=== PATIENT | male | born 1980 | race Caucasian/White ===

== ENCOUNTER 2020-02-21 16:29 | Emergency (ER) | payer OTHER, SELFPAY ==
[2020-02-21 16:33] VITALS: BP 126/79; PULSE 86; RESP 20; TEMP 37.4; O2SAT 96
--- NOTE | 2020-02-21 17:59 | ED.EYEPROB ---
HPI - Eye Problem General Chief complaint: Eye Problems Stated complaint: FB r eye Time Seen by Provider: 02/21/20 17:00 Source: patient Mode of arrival: ambulatory Limitations: no limitations History of Present Illness HPI Narrative: Patient presents the emergency department for injury to the right thigh just prior to arrival. Reports he was working under a car. Reports he did have goggles on. Reports it felt like a small piece of metal went into his eye. Reports he thinks he was able to get this out. He washed his eye out at home. Reports some continued discomfort to the eye. Reports some blurry vision. Denies fever, erythema, or vomiting. Related Data Allergies Allergy/AdvReac Type Severity Reaction Status Date / Time cefadroxil Allergy Unknown Unknown Verified 02/21/20 16:36 CEFADROXIL (Generic Allergy) Allergy Y Uncoded 02/21/20 16:36 Review of Systems Review of Systems: Narrative: CONSTITUTIONAL: Denies fever EYES: Reports visual changes. Denies redness, or discharge. All systems reviewed & are unremarkable except as noted in HPI and below PMFSH Social History Social History Smoking status: Never smoker Alcohol intake: current Exam Narrative: Exam Narrative: GENERAL: Well-appearing, well-nourished, and in no acute distress. HEAD: Normocephalic, atraumatic. EYES: PERRLA and EOMI. Eyelid everted, no foreign bodies noted. Positive fluorescein stain uptake in the right eye with a small corneal abrasion EXTREMITIES: Normal range of motion. No edema. SKIN: Warm, dry, no rash. NEURO: No focal deficits. Alert and oriented x3. PSYCH: Normal mood and affect Course Vital Signs Vital signs: Vital Signs Temperature 99.4 F 02/21/20 16:33 Pulse Rate 86 02/21/20 16:33 Respiratory Rate 20 02/21/20 16:33 Blood Pressure 126/79 02/21/20 16:33 Pulse Oximetry 96 02/21/20 16:33 Temperature 99.4 F 02/21/20 16:33 Pulse Rate 86 02/21/20 16:33 Respiratory Rate 20 02/21/20 16:33 Blood Pressure 126/79 02/21/20 16:33 Pulse Oximetry 96 02/21/20 16:33 MDM - Eye Problem MDM Narrative Medical decision making narrative: Patient presents to the emergency department for possible foreign body in the right eye. Reports he washed his eye at home and was able to get it out. No foreign bodies noted on my exam today. He does have a small corneal abrasion. Will be started on antibiotic eye ointment. Was instructed to follow-up with an electric deicer inspector. Patient is stable and felt appropriate for further outpatient evaluation. He was given warnings to return to the ER Critical Care Time Critical Care Time Critical Care Time: No Discharge Plan Discharge Clinical Impression: Corneal abrasion Qualifiers: Encounter type: initial encounter Laterality: right Qualified Code(s): S05.01XA - Injury of conjunctiva and corneal abrasion without foreign body, right eye, initial encounter Patient Disposition: Home, Self-Care Condition: Stable Instructions: Antibiotic Form, Corneal Abrasion (ED) Additional Instructions: Return to the emergency department if you experience fever, redness and swelling of your eye, worsening vision, or any other symptoms that are concerning to you Apply antibiotic eye ointment as prescribed. Tylenol or ibuprofen as needed for discomfort Follow-up with ophthalmology Prescriptions: New erythromycin 5 mg/gram (0.5 %) ointment 1 applic RIGHT EYE Q6H 5 Days Qty: 3.5 RF: 0 Follow-up/Referrals: Geno,BRENDAN Bernal [Primary Care Provider] - Valerio Kincaid MD [Physician] - 1 Day
== END 2020-02-21 18:22 | disposition home or self-care (01) ==
PROVIDERS: Emergency Provider Emergency Medicine; PCP Physician Assistant
DX: S05.01XA Injury of conjunctiva and corneal abrasion without foreign body, right eye, initial encounter (principal); W22.8XXA Striking against or struck by other objects, initial encounter
CPT/HCPCS: 99283; A9270

== ENCOUNTER 2020-03-09 00:34 | Inpatient (IN) | payer OTHER, SELFPAY ==
[2020-03-09] VITALS (36 sets, daily range): BP systolic 88–143; BP diastolic 56–96; PULSE 60–97; RESP 13–22; TEMP 36.1–36.7; O2SAT 95–100; BMI 27.6
--- NOTE | ~2020-03-09 | XR_ITS ---
EXAMINATION: XR chest 2V DATE: 03/09/2020 01:15 INDICATION: Left-sided chest pain TECHNIQUE: PA and lateral views of the chest are obtained. COMPARISON: None available FINDINGS: The lungs are free of acute opacities. There is no pleural effusion or pneumothorax. The he art size is normal. A calcified nodule of the left lower lobe and calcified left hilar lymph nodes ar e consistent with old granulomatous disease. There is mild thoracic spondylosis. IMPRESSION: 1. No acute cardiopulmonary abnormality. Reviewed, dictated and finalized at location A.
--- NOTE | 2020-03-09 00:45 | ECG_ITS ---
Measurements Intervals [place] Rate: 83 P: 47 [place]: 140 QRS: 6 QRSD: 119 T: 39 QT: 347 QTc: 410 Interpretive Statements SINUS RHYTHM INTRAVENTRICULAR CONDUCTION DELAY DELAYED PRECORDIAL R/S TRANSITION MINIMAL Q WAVES- HIGH LATERAL LEADS BORDERLINE ECG Electronically Signed On 03-09-2020 7:14:25 CDT by Jam Hooper D.O.
[2020-03-09] MEDS: ASPIRIN 81 MG CHEWABLE TABLET 324 MG PO (01:01)
[2020-03-09 01:02] LABS: Basophils Percent Auto 0.2 % (0.2-1.2); Eosinophils Absolute Auto 0.1 K/mm3 (0-0.3); Eosinophils Percent Auto 0.9 % (0-4.4); Hematocrit 38.9 % (42.0-52.0); Hemoglobin 13.6 g/dL (14.0-18.0); Immature Granulocyte Absolute 0.03 K/mm3 (0.00-0.031); Immature Granulocyte Percent A 0.3 % (0-0.5); Lymphocytes Absolute Auto 1.18 K/mm3 (0.9-3.2); Mean Corpuscular Hemoglobin 30.6 pg (26-34); Mean Corpuscular Volume 87.6 fl (80-100); Mean Platelet Volume 9.7 fl (7.4-10.4); Monocytes Absolute Auto 0.4 K/mm3 (0.1-0.6); Monocytes Percent Auto 4.6 % (2.6-8.5); Neutrophils Absolute Auto 7.4 K/mm3 (1.3-6.7); Platelet Count Result 167 k/mm3 (150-375); Red Blood Count 4.44 M/mm3 (4.6-6.20); White Blood Count 9.1 K/mm3 (4.5-10.0)
[2020-03-09 01:06] LABS: Prothrombin Time 13.1 Seconds (11.1-14.7)
[2020-03-09 01:07] LABS: Partial Thromboplastin Time 24.6 SECONDS (22.3-36.8)
[2020-03-09 01:14] LABS: Anion Gap 6 mmol/L (8-16); Blood Urea Nitrogen 15 mg/dL (9-20); Calcium 9.2 mg/dL (8.4-10.2); Carbon Dioxide 29 mmol/L (22-30); Chloride 103 mmol/L (98-107); Estimated CRCL calculation 111 ml/min; Estimated Glomerular Filt Rate > 60; Glucose 126 mg/dL (75-110); Potassium 3.9 mmol/L (3.4-5.0); Sodium 138 mmol/L (137-145)
[2020-03-09 01:27] LABS: Troponin I 0.023 ng/mL (0.000-0.034)
--- NOTE | 2020-03-09 02:38 | ED.CHESTPAIN ---
HPI - Chest Pain General Chief Complaint: Chest Pain Stated Complaint: chest pain Time Seen by Provider: 03/09/20 02:03 History of Present Illness HPI narrative: Patient is a 39-year-old male who presents the ER with chest pain. Symptoms began several hours prior to arrival. Patient was unsure when he had sudden onset central chest pressure going from his lower chest all the way up to his neck. Radiated into his left neck and then all the way down his left arm. Symptoms waxed and waned over the course of an hour. No relief with Tums. No worsening of symptoms with physical movements of the extremities or with exertion. He had nausea with vomiting x2. No previous heart history for him or close family member. Not no alleviating factors. Mildly worsened by laying down. Related Data Allergies Allergy/AdvReac Type Severity Reaction Status Date / Time cefadroxil Allergy Unknown Unknown Verified 02/21/20 16:36 CEFADROXIL (Generic Allergy) Allergy Y Uncoded 02/21/20 16:36 Review of Systems Review of Systems: All systems reviewed & are unremarkable except as noted in HPI and below Constitutional: Constitutional: Denies chills, Denies fever(s) and Denies weakness Cardiovascular: Cardiovascular: Reports chest pain, Denies rapid heart rate and Reports radiating jaw, neck or arm pain Respiratory: Respiratory: Denies cough and Reports dyspnea Gastrointestinal: Gastrointestinal: Denies abdominal pain, Denies diarrhea, Reports nausea and Reports vomiting PMFSH Past Medical History Medical History (Updated 03/09/20 @ 05:11 by Lucian Lee MD) Healthy adult male Surgical History Surgical History (Updated 03/09/20 @ 05:09 by Lucian Lee MD) No history of previous surgery Social History Social History Smoking status: Never smoker Alcohol intake: current Gender identity (if verbalized by the patient): Male Exam Narrative: Exam Narrative: GENERAL: Well-appearing, well-nourished, and in no acute distress. HEAD: Normocephalic, atraumatic. ENT: Mucous membranes moist. CHEST: Clear to auscultation. No respiratory distress. Reproducible tenderness left anterior chest wall. HEART: Regular rate and rhythm. No murmur heard. Normal peripheral pulses. ABDOMEN: Soft, nontender, nondistended. EXTREMITIES: Normal range of motion. No edema. SKIN: Warm, dry, no rash. NEURO: Alert and oriented x3. PSYCH: Normal mood and affect. Course Course Emergency Course: Patient chest pain-free. Discussed with Dr. Wong decision was made to admit to chest pain center. While in the ER patient second troponin came back positive. Discussed again with Dr. Wong. Admit to the IMCU and placed on heparin drip. Keep n.p.o. Patient aware of diagnosis and treatment plan. Vital Signs Vital signs: Vital Signs Pulse Rate 83 03/09/20 00:39 Respiratory Rate 17 03/09/20 00:39 Blood Pressure 128/96 H 03/09/20 00:39 Pulse Oximetry 99 03/09/20 00:39 Pulse Rate 91 03/09/20 00:44 Respiratory Rate 17 03/09/20 00:39 Blood Pressure 128/96 H 03/09/20 00:39 Pulse Oximetry 99 03/09/20 00:39 MDM - Chest Pain Lab Data Result diagrams: 03/09/20 00:50 03/09/20 00:50 Labs: Lab Results 03/09/20 03/09/20 03/09/20 Range/Units 00:50 00:50 00:50 WBC 9.1 (4.5-10.0) K/mm3 RBC 4.44 L (4.6-6.20) M/mm3 Hgb 13.6 L (14.0-18.0) g/dL Hct 38.9 L (42.0-52.0) % MCV 87.6 (80-100) fl MCH 30.6 (26-34) pg MCHC 35.0 (32-36) g/dl RDW 12.0 (11.5-14.5) % Plt Count 167 (150-375) k/mm3 MPV 9.7 (7.4-10.4) fl Immature Gran % (Auto) 0.3 (0-0.5) % Neut % (Auto) 81.0 H (45.5-73.1) % Lymph % (Auto) 13.0 L (18.3-44.2) % [place] % (Auto) 4.6 (2.6-8.5) % Eos % (Auto) 0.9 (0-4.4) % Baso % (Auto) 0.2 (0.2-1.2) % Lymph # (Auto) 1.18 (0.9-3.2) K/mm3 [place] # (Auto) 0.4 (0.1-0.6) K/mm3 Eos # (Auto) 0.1 (0-0.3) K/mm3 Ba
[2020-03-09 04:28] LABS: Troponin I 0.245 ng/mL (0.000-0.034)
[2020-03-09] MEDS: HEPARIN SODIUM 5,000 UNITS/ML VIAL 4000 UNITS IV PUSH (05:14)
[2020-03-09] MEDS: HEPARIN SOD/D5W 100 UNITS/ML 25,000 UNITS/250 ML BAG 10 UNITS IV CONT (05:15)
--- NOTE | 2020-03-09 06:04 | ADMGEN ---
This patient, Leon Goff, was admitted to IMU Room 232-01. Patient/family oriented to hospital policies and general routines including ID bracelet, bed and alarms, visiting hours, pain management, procedures, bathroom and other care routines, personal items, smoking policy, room service/diet, and visiting hours. Valuables list has been completed. Information on how to activate the Rapid Response Team has been discussed. Patient/Family are encouraged to report perceived risks to care and to ask questions if they do not understand what they are told or what they should do.
[2020-03-09 07:47] LABS: Troponin I 0.529 ng/mL (0.000-0.034)
--- NOTE | 2020-03-09 08:57 | PM.CNCAR ---
Assessment and Plan Additional Plan 39-year-old white male previously healthy presents with an episode of chest discomfort as detailed above and a troponin rise therefore has the diagnosis of acute coronary syndrome/ non ST elevation [place]. Coronary angiography was recommended for this morning to guide therapeutic decisions he understands the procedure in detail the risks and wishes to proceed. We will proceed with angiography this morning and further recommendations pending completion of that exam Madi Cesar MD [facility] History of Present Illness History of Present Illness Consult date/time: Date of service:03/09/20 08:57 Consult reason: chest pain Reason For Visit: Chest pain Narrative: This is a 39-year-old man that I am seeing at the request of the hospitalist with a history of chest pain and troponin abnormality compatible with acute coronary syndrome. The patient is not known to have any cardiac and really not any medical problems of any kind prior to this admission. He was in his usual state of health when yesterday evening he was at his home and after taking a shower prior to getting ready to go to bed he started to notice some chest pain he describes an upper substernal pressure-like sensation that radiated to the left shoulder and down the left arm. He stated this symptoms waxed and waned for about an hour so he took some aspirin and he also decided to take some antacids to see if he would obtain relief and when he did not he eventually came to the emergency room to be evaluated. In the ED is electrocardiogram showed a sinus mechanism without any significant ST or T abnormalities. His initial troponin level was negative and the blood initial plans were to admit him as a chest Pain Center admission. When his 2nd troponin level came back abnormal he was converted to a standard admission he was placed on intravenous heparin and admitted to the IMU. He has not had any further episodes of pain since admission. He also received aspirin in the emergency room he has not received a beta-cesilia or a statin from what I can see. 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 The patient offers no other history at this time and seems to be doing well. He states his father has coronary artery disease he believes he developed it at around 60 years old but he is unsure of that Review of Systems Constitutional: Constitutional: Reports no additional constitutional complaints Eyes: Eyes: Reports no additional eye complaints ENT: Reports system reviewed and no additional complaints, except as documented Cardiovascular: Cardiovascular: Reports as per HPI Respiratory: Respiratory: Reports no additional respiratory complaints Gastrointestinal: Gastrointestinal: Reports no additional gastrointestinal complaints Genitourinary: Genitourinary: Reports no additional male genitourinary complaints Musculoskeletal: Musculoskeletal: Reports no additional musculoskeletal complaints Integumentary/Breasts: Skin/Breast: Reports system reviewed and no additional complaints, except as docu Neurologic: Reports system reviewed and no additional complaints, except as documented Endocrine: Endocrine: Reports no additional endocrine complaints Hematologic/Lymphatic: Hematologic/Lymphatic: Reports no additional hematologic/lymphatic complaints Allergic/Immunologic: Allergic/Immunologic: Reports no additional allergic/immunologic complaints [facility] Past Medical History Medical History (Updated 03/09/20 @ 05:11 by Lucian Lee MD) Healthy adult male Surgical History Surgical History (Updated 03/09/20 @ 05:09 by Lucian Lee MD) No history of previous surgery Family History Family History (Updated 03/09/20 @ 06:24 by Flakita Richards RN) [place]
--- NOTE | 2020-03-09 09:02 | WPDMODSED ---
Moderate Sedation Note-Pt Data Patient Data Diagnosis: non ST-elevation IN Present Complaint: upper substernal chest heaviness Allergies Allergy/AdvReac Type Severity Reaction Status Date / Time cefadroxil Allergy Unknown Unknown Verified 02/21/20 16:36 CEFADROXIL (Generic Allergy) Allergy Y Uncoded 02/21/20 16:36 Home Medications Medication Instructions Recorded Confirmed Type No Home Medications 03/09/20 03/09/20 History Current Medications: Active Medications Acetaminophen (Tylenol Tablet) 650 mg PO Q4H PRN PRN Reason: Mild Pain (1-3) Aspirin (Aspirin Chewable) 81 mg PO DAILY@0800 [facility] Heparin Sodium (Porcine) (Heparin Sodium) 4,000 units IV PUSH PRN PRN PRN Reason: aPTT less than 55 seconds Heparin Sodium (Porcine) (Heparin Sodium) 3,000 units IV PUSH PRN PRN PRN Reason: aPTT 55 - 70 seconds Heparin Sodium/Dextrose (Heparin Sodium/D5w 100 Units/Ml) 25,000 units in 250 mls @ 10 mls/hr IV CONT .Q24H TAMELA; Protocol Last Admin: 03/09/20 05:15 Dose: 1,000 units/hr, 10 mls/hr Documented by: Nitroglycerin (Nitrostat Subl 0.4 Mg (1/150)) 0.4 mg SUBLINGUAL Q5MIN PRN PRN Reason: Chest Pain Ondansetron HCl (Zofran Inj) 4 mg IV PUSH Q6H PRN PRN Reason: Nausea And Vomiting Sedation/Anesthesia: No previous sedation/anesthesia problems (including family history). [facility] Past Medical History Medical History (Updated 03/09/20 @ 05:11 by Lucian Lee MD) Healthy adult male Surgical History Surgical History (Updated 03/09/20 @ 05:09 by Lucian Lee MD) No history of previous surgery Family History Family History (Updated 03/09/20 @ 06:24 by Flakita Richards RN) Sibling Hypertension Mother Patient's mother is in good health Father Malignant neoplasm of prostate Myasthenia gravis Tongue cancer Social History Social History Smoking status: Former smoker Tobacco type: cigarettes Alcohol intake: current Drinks per week: 5 Substance use: never Substance use type: does not use Gender identity (if verbalized by the patient): Male Spiritual care concerns: No Mod Sed Physical Exam Physical Exam Pre Procedural Exam: Normal: Appearance, Neck, Throat, Airway, Lungs, Heart Size, Heart Rate, Heart Rhythm, Neuro Exam and Extremities Hours since solid foods: 12 Hours since liquid intake: 12 Internal Medicine - PN: Obj Da Vital Signs Vital Signs: Vital Signs - 24 hr 03/09/20 00:39 03/09/20 00:44 03/09/20 01:15 Temperature Pulse Rate 83 91 83 Respiratory Rate 17 19 Blood Pressure 128/96 H 136/96 H Pulse Oximetry 99 97 03/09/20 02:15 03/09/20 03:17 03/09/20 04:15 Temperature Pulse Rate 97 79 81 Respiratory Rate 17 14 18 Blood Pressure 132/95 H 131/86 128/94 H Pulse Oximetry 98 96 95 03/09/20 04:45 03/09/20 05:15 03/09/20 06:08 Temperature 36.5 C Pulse Rate 95 82 70 Respiratory Rate 19 22 H 18 Blood Pressure 133/93 H 119/83 140/82 Pulse Oximetry 95 96 99 03/09/20 08:00 Temperature 36.1 C L Pulse Rate 83 Respiratory Rate 14 Blood Pressure 128/82 Pulse Oximetry 100 Meds/Results Medications: Active Medications Generic Name Dose Route Start Last Admin Trade Name Freq PRN Reason Stop Dose Admin Acetaminophen 650 mg 03/09/20 02:59 Tylenol Tablet PO Q4H PRN Mild Pain (1-3) Aspirin 81 mg 03/09/20 08:00 Aspirin Chewable PO DAILY@0800 [facility] Heparin Sodium (Porcine) 4,000 units 03/09/20 06:02 Heparin Sodium IV PUSH PRN PRN aPTT less than 55 seconds Heparin Sodium (Porcine) 3,000 units 03/09/20 06:02 Heparin Sodium IV PUSH PRN PRN aPTT 55 - 70 seconds Heparin Sodium/Dextrose 25,000 units in 250 mls @ 10 mls/hr 03/09/20 04:45 03/09/20 05:15 Heparin Sodium/D5w 100 Units/Ml IV CONT 1,000 units/hr .Q24H TAMELA 10 mls/hr Administration Protocol 1,000 UNITS/HR Nitroglycerin 0.4 mg 03/09/20 02:59 Nitrostat Subl 0.4 Mg (1/150) SUBLINGUAL
[2020-03-09] MEDS: ASPIRIN 81 MG CHEWABLE TABLET PO (09:28)
--- NOTE | 2020-03-09 11:13 | ECG_ITS ---
Measurements Intervals [place] Rate: 84 P: 144 [place]: 135 QRS: -23 QRSD: 125 T: 180 QT: 333 QTc: 395 Interpretive Statements SINUS RHYTHM INTRAVENTRICULAR CONDUCTION DELAY HIGH LATERAL INFARCT, AGE INDETERMINATE BORDERLINE T WAVE ABNORMALITY- INFERIOR LEADS ABNORMAL ECG Electronically Signed On 03-09-2020 11:39:30 CDT by Jam Hooper D.O.
--- NOTE | 2020-03-09 11:38 | ECG_ITS ---
Measurements Intervals [place] Rate: 64 P: 25 [place]: 130 QRS: 22 QRSD: 111 T: 34 QT: 386 QTc: 401 Interpretive Statements SINUS RHYTHM RSR' IN V1 OR V2, CONSIDER RIGHT VENTRICULAR HYPERTROPHY OR RIGHT VCD MINIMAL Q WAVES- LAT/HIGH LAT LEADS BORDERLINE ECG Electronically Signed On 03-09-2020 14:31:53 CDT by Jam Hooper D.O.
--- NOTE | 2020-03-09 11:43 | WPDCARDPROC ---
Cardiac Cath Procedure Note Date of procedure:: 03/09/20 Performing physician:: Madi Cesar MD Indication:: acute coronary syndrome Brief clinical history:: 39-year-old man without previous cardiovascular history or significant medical history the patient began to experience ischemic type chest pain last evening after showering. Upon arrival in the emergency room he was stable his electrocardiogram appeared to be benign however his troponin levels have risen compatible with ACS. In this setting angiography has been recommended Procedure Procedure performed:: left heart catheterization with coronary angiography and left ventriculography PCI to right coronary artery using drug-eluting stent Sedation/Medication given:: fentanyl 50 mg Versed 2 mg case start time 11:06 a.m. case end time 11:37 a.m. sedation provided by Bin Sol RN, trained observer Access site:: right femoral artery Estimated blood loss:: 15-20 cc Procedure note:: patient brought to the cardiac catheterization lab in the postabsorptive state the right femoral triangle was prepared in the usual fashion. Anesthesia was provided with 1% lidocaine infiltrated locally. Using the modified Seldinger technique a 5 Somali sheath was placed into the right femoral artery. Left heart catheterization was then performed. I used a 5 Somali angled pigtail catheter to document left-sided hemodynamics, pullback pressures across the aortic valve into inject all LV g in the are AO projection. Following this the pigtail catheter was withdrawn and the left coronary artery was then engaged and injected using a 5 Somali FL4 catheter. The right coronary was engaged and injected using a 5 Somali JR4 catheter. The cine angiograms were then reviewed and PCI of the right coronary artery was recommended and carried out as detailed below. Prior to PCI the 5 Somali sheath was changed over a guidewire for a 6 Somali sheath. The patient was systemically anticoagulated with Angiomax for this intervention and he received Brilinta 180 mg p.o. in the cavity a photographic laboratory technician. Following this PCI of the right coronary artery was carried out as detailed below. After PCI the case was terminated the sheath was sutured into position the patient was taken to the holding area for post cath/PCI recovery. Plans will be made for manual sheath removal in 2 hours following completion of the Angiomax infusion. Findings:: Hemodynamics: Central aortic pressure is 1 30/76 left ventricle 128/0 end-diastolic pressure of 10 there is gradient pullback across the aortic valve. left ventricle: The LV is normal in size the mid inferior wall is hypodynamic the remainder of the LV contracts well global ejection fraction is 55% by visual estimation the left main coronary artery is widely patent the LAD is a moderate caliber artery extending down to around the apex the LAD its diagonal and septal branches are angiographically normal. There is a medium size ramus intermedius branch that takes its origin and distributes is a high OM branch. This vessel is angiographically normal circumflex is a large caliber vessel that appears to be codominant to the posterior circulation the circumflex its marginal with posterior branches are angiographically free of disease right coronary is a large caliber vessel also appears to be codominant to the inferior wall the mid right coronary artery has a high-grade stenosis of 95-99%. This is preceded by a longer area of atherosclerosis which is quite mild. Intervention: The RCA was engaged using a 6 Somali JR4 guiding catheter. The right coronary artery was wired using a 0.014 BMW. Lesion was pre-dilated using a 3 x 20 mm emerge PTCA balloon. Following this there was much better flow in the vessel and it was much larger than anticipated. The entire area of disease, not just high-grade segment but the entire area of atherosclerosis was then treated with a 4 by 30 mm Orsiro drug-elut
--- NOTE | 2020-03-09 14:42 | SUR.PHASEII ---
1435-Patient hypotensive and nauseous during sheath pull. Manual pressure continues to be held by Bin Sol RN. IVF , wide open, cool wash cloths applied to patients face and neck. 1440 Pt back to BP baseline, pt states hes feeling better, BP 126/84, r groin manual pressure continues, no bleeding or hematoma noted to R groin, will continue to monitor closely.
[2020-03-09] MEDS: ACETAMINOPHEN 325 MG TABLET 650 MG PO (21:32)
[2020-03-09] MEDS: TICAGRELOR 90 MG TABLET PO (21:32)
[2020-03-10] VITALS (9 sets, daily range): BP systolic 123–130; BP diastolic 75–80; PULSE 69–86; RESP 16–20; TEMP 35.6–36.1; O2SAT 97–98
--- NOTE | 2020-03-10 05:11 | ECG_ITS ---
Measurements Intervals [place] Rate: 74 P: 50 [place]: 145 QRS: 6 QRSD: 115 T: 11 QT: 371 QTc: 414 Interpretive Statements SINUS RHYTHM INTRAVENTRICULAR CONDUCTION DELAY MINIMAL Q WAVES- HIGH LATERAL LEADS BORDERLINE ECG Electronically Signed On 03-10-2020 10:00:14 CDT by Jam Hooper D.O.
[2020-03-10 05:27] LABS: Basophils Percent Auto 0.4 % (0.2-1.2); Eosinophils Absolute Auto 0.1 K/mm3 (0-0.3); Eosinophils Percent Auto 1.3 % (0-4.4); Hematocrit 41.2 % (42.0-52.0); Hemoglobin 13.9 g/dL (14.0-18.0); Immature Granulocyte Absolute 0.02 K/mm3 (0.00-0.031); Immature Granulocyte Percent A 0.3 % (0-0.5); Lymphocytes Absolute Auto 1.47 K/mm3 (0.9-3.2); Lymphocytes Percent Auto 20.8 % (18.3-44.2); Mean Corpuscular HGB Conc 33.7 g/dl (32-36); Mean Corpuscular Hemoglobin 30.3 pg (26-34); Mean Corpuscular Volume 89.8 fl (80-100); Mean Platelet Volume 10.2 fl (7.4-10.4); Monocytes Absolute Auto 0.5 K/mm3 (0.1-0.6); Monocytes Percent Auto 7.4 % (2.6-8.5); Neutrophils Absolute Auto 4.9 K/mm3 (1.3-6.7); Neutrophils Percent Auto 69.8 % (45.5-73.1); Platelet Count Result 169 k/mm3 (150-375); Red Blood Count 4.59 M/mm3 (4.6-6.20); Red Cell Distribution Width 12.2 % (11.5-14.5); White Blood Count 7.1 K/mm3 (4.5-10.0)
[2020-03-10 05:37] LABS: Cholesterol 241 mg/dL (0-200); HDL Direct 35 mg/dL; Triglycerides 175 mg/dL (<150)
[2020-03-10 05:48] LABS: LDL Cholesterol Direct 155 mg/dL
[2020-03-10] MEDS: ROSUVASTATIN 10 MG TABLET PO (09:14)
[2020-03-10] MEDS: ASPIRIN 81 MG CHEWABLE TABLET PO (09:14)
[2020-03-10] MEDS: TICAGRELOR 90 MG TABLET PO (09:14)
--- NOTE | 2020-03-10 11:47 | PM.DS ---
DS: Admitting Diagnosis Admitting Diagnosis Admitting Diagnosis: Chest pain DS: Discharge Diagnosis Discharge Diagnosis (1) Non-ST elevated myocardial infarction (non-STEMI): Code(s): I21.4 - Non-ST elevation (NSTEMI) myocardial infarction Status: Acute Assessment and Plan: Status post drug-eluting stent to mid RCA 03/09/2020. Continue aspirin 81 mg daily indefinitely, Brilinta 90 mg every 12 hours for at least 1 year and rosuvastatin 10 mg daily. DS: Summary Hospital Course Reason for hospitalization: Chest pain Hospital Course: 39-year-old male with no history of coronary artery disease presented to the emergency room for evaluation of chest pain. EKG was benign but his biomarkers began to rise. He was taken to the cardiac catheterization lab by Dr Cesar on 03/09/2020 with significant findings of: Single-vessel coronary disease with a 95-99% stenosis of the mid right coronary artery which is a codominant vessel. No significant left coronary disease. Mild inferior hypokinesis overall normal ejection fraction. He proceeded on to successful PCI using 4 x 30 mm Orsiro drug-eluting stent. He was started on aspirin , Brilinta and rosuvastatin. He was monitored overnight. He had no arrhythmias. Right groin site was without swelling or bleeding. No femoral bruit. Distal pulses intact. He was discharged home in stable and pain-free condition. Status at Discharge Functional status at discharge: independent ambulation Overall status at discharge: patient is back to baseline Time Spent with Patient Time attestation: Total time spent providing and/or coordinating discharge services: 20 minutes in the room answering questions reviewing activity restrictions, diet and medications. 10 minutes to do discharge orders. 15 minutes to complete discharge summary. Total time: 45 minutes Time spent: Greater than 30 minutes Exam Const: General: comfortable and no acute distress Other: HENMT: Mouth: Yes moist mucous membranes Eyes: Sclera: sclerae normal Pupils: Equal, round and reactive pupils present Neck: Neck: supple and no JVD Resp: Effort & Inspection: normal respiratory effort Auscultation: clear to auscultation bilaterally Cardio: Other: GI: GI Palp: Yes Soft to palpation Auscultation: normal bowel sounds Skin: General skin exam: normal color Neuro: Cranial nerves: Yes Equal, round and reactive pupils present Cognition (Neuro): normal cognition Extrem: General: normal to inspection Other: right groin site without swelling or bleeding. No femoral bruit. Distal pulses intact. Psych: Appearance: grossly normal Mental Status: mental status grossly normal Speech and movement: Normal speech and movement present Affect: normal affect Attitude: cooperative Thought process: Normal thought process present Thought content: Yes Normal thought content present Insight: Good insight present (Psych) Judgement: Good judgement present (Psych) DS: Data Data Completed and Pending Labs on day of discharge: Labs from last 24 hours 03/10/20 03/10/20 05:07 05:07 WBC 7.1 RBC 4.59 L Hgb 13.9 L Hct 41.2 L MCV 89.8 MCH 30.3 MCHC 33.7 RDW 12.2 Plt Count 169 MPV 10.2 Immature Gran % (Auto) 0.3 Neut % (Auto) 69.8 Lymph % (Auto) 20.8 [place] % (Auto) 7.4 Eos % (Auto) 1.3 Baso % (Auto) 0.4 Lymph # (Auto) 1.47 [place] # (Auto) 0.5 Eos # (Auto) 0.1 Baso # (Auto) 0.0 Abs Immat Gran (auto) 0.02 Absolute Neuts (auto) 4.9 Absolute Nucleated RBC 0.0 Nucleated RBC % 0.0 Triglycerides 175 H Cholesterol 241 H LDL Cholesterol Direct 155 HDL Direct 35 Discharge Plan Discharge Attending physician on discharge: Manish Wong Discharging Clinician: Martha Del Angel Anticipated Discharge Date/Time: 03/10/20 11:36 Patient Disposition: Home, Self-Care Activity: other - see
== END 2020-03-10 13:05 | disposition home or self-care (01) | DRG 247 ==
LOC: ANHED 05:11 → ANHIMU 05:22
PROVIDERS: Specialist; Admitting Provider Internal Medicine Cardiovascular Disease; Emergency Provider Emergency Medicine; PCP Physician Assistant; Visit Provider Nurse Practitioner Adult Health
PROC: 4A023N7 Measurement of Cardiac Sampling and Pressure, Left Heart, Percutaneous Approach (ICD-10-PCS; CPT 93452; principal; 2020-03-09 11:30)
PROC: 027034Z Dilation of Coronary Artery, One Artery with Drug-eluting Intraluminal Device, Percutaneous Approach (ICD-10-PCS; 2020-03-09 11:30)
DX: I21.4 Non-ST elevation (NSTEMI) myocardial infarction (principal); I25.10 Atherosclerotic heart disease of native coronary artery without angina pectoris; Z79.82 Long term (current) use of aspirin; Z79.899 Other long term (current) drug therapy; Z87.891 Personal history of nicotine dependence
CPT/HCPCS: 36415; 71046; 80048; 80061; 84484; 85025; 85610; 85730; 93005; 93458; 96374; 99291; A9270; C1725; C1769; C1874; C1887; C1894; C9600; G0378; J0461; J0583; J1644; J2250; J3010; J7040

== ENCOUNTER 2020-11-03 22:37 | Emergency (ER) | payer OTHER, SELFPAY ==
--- NOTE | ~2020-11-03 | CT_ITS ---
EXAMINATION: CT brain wo con DATE: 11/03/2020 23:15 INDICATION: Head injury on blood thinners. TECHNIQUE: Computed tomography (CT) of the head was performed without intravenous contrast. Sagittal and coronal reconstructions were performed. The mA was adjusted according to patient size. Iterative reconstruction technique was employed. The dose-length product was 681.00 mGy-cm. COMPARISON: None FINDINGS: No calvarial fracture. No acute intracranial hemorrhage, acute infarction or abnormal extra axial flu id collection. Ventricles are normal and symmetric. No mass/mass effect. Small amount of layering rel atively high attenuation fluid in the right maxillary sinus which could represent blood. Correlate fo r epistaxis. The orbits and mastoid air cells are normal. IMPRESSION: 1. Normal brain. No acute intracranial process. Reviewed, dictated and finalized at location A.
[2020-11-03 22:49] VITALS: BP 131/89; PULSE 89; RESP 18; TEMP 35.9; O2SAT 97
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
[2020-11-04 00:10] VITALS: BP 129/78; PULSE 79; RESP 18; O2SAT 98
== END 2020-11-04 00:10 | disposition home or self-care (01) ==
LOC: ANHED 11-04 00:06
PROVIDERS: Emergency Provider Emergency Medicine; PCP Physician Assistant
DX: S09.90XA Unspecified injury of head, initial encounter (principal); W27.8XXA Contact with other nonpowered hand tool, initial encounter; Z87.891 Personal history of nicotine dependence
CPT/HCPCS: 70450; 99284

== ENCOUNTER 2021-07-03 12:08 | Emergency (ER) | payer OTHER, SELFPAY ==
[2021-07-03 12:27] VITALS: BP 139/94; PULSE 99; RESP 20; TEMP 37.4; O2SAT 98
== END 2021-07-04 00:18 | disposition left against medical advice (07) ==
LOC: ANHED 13:17
PROVIDERS: PCP Physician Assistant
DX: Z53.21 Procedure and treatment not carried out due to patient leaving prior to being seen by health care provider (principal)
CPT/HCPCS: 99199

== ENCOUNTER → 2021-07-04 18:25 | Outpatient (CLI) | payer OTHER, SELFPAY ==
--- NOTE | ~2021-07-04 | XR_ITS ---
EXAMINATION: XR chest 2V DATE: 07/04/2021 18:43 INDICATION: Acute bronchitis with bronchospasm TECHNIQUE: PA and lateral views of the chest are obtained. COMPARISON: 03/09/2020 FINDINGS: There are patchy opacities of the mid and lower lung zones. There is no pleural effusion or pneumothorax. The cardiomediastinal silhouette is normal. The visualized bones and soft tissues are unremarkable. IMPRESSION: 1. Patchy opacities of the mid and lower lung zones, likely pneumonia. Reviewed, dictated and finalized at location F. ADMINISTRATOR
== END ==
PROVIDERS: PCP Physician Assistant; Visit Provider Physician Assistant
DX: J20.8 Acute bronchitis due to other specified organisms (principal)
CPT/HCPCS: 71046

== ENCOUNTER 2021-07-05 08:14 | Emergency (ER) | payer OTHER, SELFPAY ==
[2021-07-05 08:50] VITALS: BP 120/83; PULSE 87; RESP 18; TEMP 36.4; O2SAT 97
[2021-07-05 08:52] VITALS: O2SAT 97
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
[2021-07-05 09:17] LABS: Hematocrit 40.8 % (40.0-54.0); Hemoglobin 13.3 g/dL (14.0-18.0); Mean Corpuscular HGB Conc 32.6 g/dL (32.0-36.0); Mean Corpuscular Hemoglobin 29.4 pg (27.0-31.0); Mean Corpuscular Volume 90.3 fL (78.0-102.0); Platelet Count Result 334 K/mm3 (150-420); Red Blood Count 4.52 M/mm3 (4.70-6.10); Red Cell Distribution Width 12.4 % (11.6-14.4); White Blood Count 6.2 K/mm3 (4.8-10.8)
[2021-07-05 09:33] LABS: D Dimer 0.45 mg/L (0.19-0.50)
[2021-07-05 09:36] LABS: Lactic Acid Reflex 0.8 mmol/L (0.4-2.0)
[2021-07-05 09:39] LABS: Atypical Lymphocytes Present; Band Neutrophils Percent 0 % (0-6); Basophils Percent Manual 0 % (0-1); Eosinophils Absolute Manual 0.12 K/mm3 (0.02-0.5); Eosinophils Percent Manual 2 % (1-6); Lymphocytes Absolute Manual 0.86 K/mm3 (1.1-4.5); Lymphocytes Percent Manual 14 % (18-44); Monocytes Absolute Manual 0.49 K/mm3 (0.1-0.90); Monocytes Percent Manual 8 % (3-9); Neutrophils Absolute Manual 4.71 K/mm3 (1.3-6.7); Neutrophils Percent Manual 76 % (46-73); Platelet Estimate Adequate (Adequate); Total Cells Counted 100
[2021-07-05 09:46] LABS: CRP 10.2 mg/dL (0.0-0.9)
[2021-07-05 10:10] LABS: Alanine Aminotransferase 65 U/L (16-63); Albumin Level 3.3 g/dL (3.4-5.0); Alkaline Phosphatase 53 U/L (46-116); Anion Gap 10 mmol/L (8-16); Aspartate Amino Transferase 50 U/L (15-37); Bilirubin,Total 0.4 mg/dL (0.00-1.00); Blood Urea Nitrogen 9 mg/dL (7-18); Calcium 8.5 mg/dL (8.5-10.1); Carbon Dioxide 29 mmol/L (21-32); Chloride 102 mmol/L (98-108); Estimated CRCL calculation 90 ml/min; Estimated Glomerular Filt Rate > 60; Ferritin > 1000 ng/mL (26-388); Glucose 101 mg/dL (70-99); Magnesium 2.2 mg/dL (1.8-2.4); Osmolality Calculated 290 mOsm/kg (285-295); Potassium 3.9 mmol/L (3.5-5.1); Sodium 141 mmol/L (136-145); Total Protein 8.1 g/dL (6.4-8.2)
[2021-07-05 11:00] VITALS: BP 121/84; PULSE 94; RESP 18; O2SAT 95
== END 2021-07-05 11:01 | disposition home or self-care (01) ==
PROVIDERS: Emergency Provider Emergency Medicine; PCP Physician Assistant
DX: U07.1 COVID-19 (principal); J12.82 Pneumonia due to coronavirus disease 2019; I25.10 Atherosclerotic heart disease of native coronary artery without angina pectoris; Z87.891 Personal history of nicotine dependence
CPT/HCPCS: 36415; 80053; 82728; 83605; 83735; 85025; 85380; 86140; 96372; 99283; J1100

== ENCOUNTER 2021-10-27 07:28 | Outpatient (CLI) | payer OTHER, SELFPAY ==
--- NOTE | 2021-10-30 13:27 | WPDHOMESLEEP ---
Sleep Study - Home Unattended Date of Study: 10/27/21 Ordering Provider: Manish Wong MD Interpreting Provider: Jina Sullivan, DO Home Sleep Study Type: Apnea Link Air Height: 1.78 m Weight: 95.254 kg Body Mass Index: 30.1 Neck Circumference (inches): 15.5 [place]: 13 Reason for Sleep Study Unrefreshing sleep Sleep History The patient is a 41-year-old male when he was coronary artery disease, seasonal allergies, hyperlipidemia and history of myocardial infarction and stent in RCA that had a sleep study ordered by his [employer] dealer for evaluation of sleep apnea. The patient denies awakening from sleep short of breath. He denies awakening at night with heartburn, belching or cough. He constantly snores loud enough that others complain. He frequently has trouble sleeping when he has a cold. He denies waking up gasping for air throughout the night. He frequently has breathing problems at night observed by himself or others. He occasionally sweats excessively at night. He denies heart palpitations or irregular heartbeats during the night. He constantly falls asleep during the day but never while driving. He rarely has trouble at school or work due to sleepiness. He denies sleep paralysis, cataplexy and hypnagogic / hypnopompic hallucinations. He denies having nightmares. He denies having thoughts racing through his mind. He denies feeling sad, depressed or anxious. He denies noticing parts of his body jerk. He denies kicking during the night. He denies having crawling and aching feelings in his legs as well as leg pain during the night. He rarely grinds his teeth during sleep and rarely awakens with morning jaw pain. He is occasionally bothered by pain during the day but never awakened by pain during the night. He occasionally wakes up feeling stiff in the morning. He occasionally wakes up with sore achy muscles. He occasionally wakes up with pain in the neck, spine and other joints. He goes to bed between 9 and 10 p.m. on the weekdays and between 10 and 11:00 p.m. on the weekends. He can fall asleep immediately. He wakes up a few times throughout the night between midnight and 3:00 a.m. to urinate. He is able to fall back to sleep immediately. He wakes up at 4:45 a.m. on weekdays and between 7 and 8:00 a.m. on the weekends. He typically gets between 7 and 8 hours of sleep per night. He does not stay in bed after waking up in morning. He currently lives with his kids and his girlfriend. He does not consume any caffeinated beverages within 2 hours of bedtime. He does not engage in physical exercise before bedtime. He will watch television before falling asleep. He will take naps in the afternoon or the evening but they are not refreshing. He will drink 4 cups of caffeinated beverage in the morning. He will occasionally drink up to a 6 pack of alcohol per day. He denies tobacco use. [facility] Past Medical History Medical History Coronary artery disease Non-ST elevated myocardial infarction (non-STEMI) Surgical History Surgical History No history of previous surgery S/P right coronary artery (RCA) stent placement Stented coronary artery Family History Family History Sibling Hypertension Mother Patient's mother is in good health Father Malignant neoplasm of prostate Myasthenia gravis Tongue cancer Social History Social History Smoking status: Former smoker Tobacco type: cigarettes Alcohol intake: current Drinks per week: 5 Substance use: never Substance use type: does not use Gender identity (if verbalized by the patient): Male Spiritual care concerns: No Medications Home Medications Medication Instructions Recorded Confirmed Type aspirin [Adult A
[2021-10-30 13:45] VITALS: BMI 30.1
== END 2021-10-30 10:27 | disposition home or self-care (01) ==
LOC: ANHCSM 07:31
PROVIDERS: PCP Physician Assistant; Visit Provider Internal Medicine Cardiovascular Disease
DX: G47.33 Obstructive sleep apnea (adult) (pediatric) (principal)
CPT/HCPCS: 95806

== ENCOUNTER 2023-05-27 02:12 | Day surgery (SDC) | payer BC, SELFPAY ==
[2023-05-27] VITALS (8 sets, daily range): BP systolic 115–129; BP diastolic 72–93; PULSE 61–79; RESP 12–20; TEMP 36.6; O2SAT 96–100; BMI 31.7
[2023-05-27 10:58] LABS: Basophils Percent Auto 0.2 % (0.2-1.2); Eosinophils Absolute Auto 0.1 K/mm3 (0-0.3); Eosinophils Percent Auto 2.2 % (0-4.4); Hematocrit 39.5 % (42.0-52.0); Hemoglobin 13.3 g/dL (14.0-18.0); Immature Granulocyte Absolute 0.01 K/mm3 (0.00-0.031); Immature Granulocyte Percent A 0.2 % (0-0.5); Lymphocytes Absolute Auto 1.39 K/mm3 (0.9-3.2); Mean Corpuscular HGB Conc 33.7 g/dl (32-36); Mean Corpuscular Hemoglobin 29.8 pg (26-34); Mean Corpuscular Volume 88.4 fl (80-100); Mean Platelet Volume 9.7 fl (7.4-10.4); Monocytes Absolute Auto 0.3 K/mm3 (0.1-0.6); Neutrophils Absolute Auto 2.7 K/mm3 (1.3-6.7); Neutrophils Percent Auto 60.4 % (45.5-73.1); Platelet Count Result 164 k/mm3 (150-375); Red Blood Count 4.47 M/mm3 (4.6-6.20); Red Cell Distribution Width 12.3 % (11.5-14.5); White Blood Count 4.5 K/mm3 (4.5-10.0)
[2023-05-27 11:02] LABS: Anion Gap 6 mmol/L (8-16); Blood Urea Nitrogen 19 mg/dL (9-20); Calcium 8.8 mg/dL (8.4-10.2); Carbon Dioxide 27 mmol/L (22-30); Chloride 107 mmol/L (98-107); Estimated CRCL calculation 123 ml/min; Estimated Glomerular Filt Rate > 60; Glucose 98 mg/dL (65-110); Sodium 140 mmol/L (137-145)
--- NOTE | 2023-05-27 14:00 | WPDCARDPROC ---
Cardiac Cath Procedure Note Date of procedure:: 05/27/23 Performing physician:: Madi Cesar MD Indication:: chest pain with exertion or emotional stress coronary artery disease with previous inferior wall/PCI in 2020 abnormal nuclear stress test Brief clinical history:: this is a 43-year-old man who has been reporting symptoms of chest pain both sometimes with exertion times with emotional stressful situations. He is known to have coronary disease and had a very high-grade right coronary lesion stented in 2020. A nuclear stress test was done which demonstrated inferior infarction with some solis-infarction ischemia. Procedure Procedure performed:: Coronary angiography left ventriculography Angio-Seal to right femoral artery Sedation/Medication given:: fentanyl 50 mg Versed 2 mg case start time 1:41 p.m. case end time 1:57 p.m. sedation provided by Jennifer Stapleton RN, trained observer Access site:: right femoral artery Estimated blood loss:: 20 cc Procedure note:: patient was brought to the cardiac catheterization lab in postabsorptive state with the right femoral triangle was prepared and draped in the usual fashion. Anesthesia was provided with 1% lidocaine infiltrated locally. Using the modified Seldinger technique 5 Moroccan sheath was placed into the right common femoral artery. Left heart catheterization was then carried out. A 5 Moroccan angled pigtail catheter was used to document left-sided hemodynamics and to inject the left ventriculogram in the 30 degree LAMBERT projection. Following this standard 5 Moroccan FL4 catheter was used to engage inject the left coronary artery and then a 5 Moroccan JR4 catheter was used to engage and inject the right coronary artery. The cineangiograms were then reviewed and the case was terminated. Following this in angiogram was done of the femoral artery through the sheath after which an Angio-Seal device was deployed with a good hemostatic result. Procedure was well tolerated and uncomplicated. There no evidence of groin hematoma upon leaving the lab[employer] Findings:: hemodynamics: Central aortic pressure is 118 over 68 left ventricle 118/0 end-diastolic pressure 4 there is gradient on pullback across the aortic valve. Left ventricle: The LV is of normal size all segments appear to contract adequately the global ejection fraction of visually estimated to be 50-55% there is no regional wall motion abnormality the left main coronary artery is widely patent. It trifurcate into the LAD, ramus and circumflex. The left anterior descending is a large caliber vessel extending down to around the apex. The LAD appears to be smooth and angiographically free of disease. The circumflex is a medium caliber vessel. The ramus intermedius branch distributes as a large OM1. The ramus and the circumflex system are smooth and angiographically free of disease. The right coronary artery is very large in caliber and dominant to posterior circulation. There is visible stent material in the mid right coronary artery. The right coronary remains widely patent with no loss of lumen excellent CHRISSY 3 flow. In this stented segment there is ostial 90% stenosis in the small acute marginal branch. This is jailed by the stent and angiographically unchanged in appearance compared to films from 2020. Conclusion:: 1. Right coronary dominant circulation with no significant coronary artery lesions at this time 2. previously stented RCA is widely patent with no recurrent stenosis or loss of lumen 3. RV acute marginal branch that does have a ostial stenosis which is jailed by the stent and not of clinical importance and unchanged in appearance from 2020 4. preserved left ventricular systolic function Madi Cesar MD FACC
== END 2023-05-27 17:00 | disposition home or self-care (01) ==
PROVIDERS: Visit Provider Specialist
PROC: 4A023N7 Measurement of Cardiac Sampling and Pressure, Left Heart, Percutaneous Approach (ICD-10-PCS; CPT 93452; principal; 2023-05-27 11:30)
DX: R07.89 Other chest pain (principal); I25.5 Ischemic cardiomyopathy; I21.4 Non-ST elevation (NSTEMI) myocardial infarction; I25.2 Old myocardial infarction; I25.10 Atherosclerotic heart disease of native coronary artery without angina pectoris; E78.00 Pure hypercholesterolemia, unspecified; G47.30 Sleep apnea, unspecified; G47.33 Obstructive sleep apnea (adult) (pediatric); Z79.82 Long term (current) use of aspirin; Z87.891 Personal history of nicotine dependence; Z95.5 Presence of coronary angioplasty implant and graft; Z99.89 Dependence on other enabling machines and devices; Z82.49 Family history of ischemic heart disease and other diseases of the circulatory system
CPT/HCPCS: 36415; 80048; 85025; 93458; C1760; C1887; C1894; G0269; J1644; J2250; J3010; J7040

== ENCOUNTER 2023-11-11 11:51 | Emergency (ER) | payer BC, SELFPAY ==
[2023-11-11 11:56] VITALS: BP 143/96; PULSE 81; RESP 18; TEMP 37.1; O2SAT 97
--- NOTE | 2023-11-11 12:54 | ED.SKABFB ---
HPI - Skin/Abscess/Foreign Bdy General Chief complaint: Skin/Abscess/Foreign Body Stated complaint: buttock boil History of Present Illness HPI narrative: RIGHT BUTTOCK ABSCESS, LEAKING PURULENT BLOODY DISCHARGE FOR THE LAST FEW DAYS. HE DENIES ANY FEVER OR CHILLS. Related Data Home Medications Medication Instructions Recorded Confirmed metoprolol succinate 25 mg 25 mg PO DAILY 05/27/23 11/11/23 tablet,extended release 24 hr rosuvastatin 40 mg tablet 40 mg PO DAILY 05/27/23 11/11/23 Allergies Allergy/AdvReac Type Severity Reaction Status Date / Time cefadroxil Allergy Unknown Unknown Verified 11/11/23 12:34 Review of Systems Review of Systems: All systems reviewed & are unremarkable except as noted in HPI and below PMFSH Past Medical History Medical History Coronary artery disease Non-ST elevated myocardial infarction (non-STEMI) Surgical History Surgical History No history of previous surgery S/P right coronary artery (RCA) stent placement Stented coronary artery Family History Family History Sibling Hypertension Mother Patient's mother is in good health Father Malignant neoplasm of prostate Myasthenia gravis Tongue cancer Social History Social History Social History: Smoked for less than 1 year Smoking status: Former smoker Tobacco type: cigarettes Second hand tobacco smoke exposure: No Alcohol intake: current Drinks per week: 8 Substance use: never Substance use type: does not use Gender identity (if verbalized by the patient): Male Spiritual care concerns: No Exam Narrative: GENERAL APPEARANCE: WELL-DEVELOPED, WELL-NOURISHED SKIN: NORMAL COLOR RIGHT BUTTOCK SHOWING 1 X 1 CM ABSCESS, LEAKING PURULENT BLOODY DISCHARGE, SURROUNDED BY ERYTHEMA, FIRM IN CONSISTENCY, INDURATED SKIN HEAD: NORMOCEPHALIC, NONTRAUMATIC NEUROLOGIC: ALERT AND ORIENTED ?3, SIGNAL AND COMMUNICATIONS MAINTAINER IS NORMAL TESTED, NO GROSS MOTOR DEFICIT Course Vital Signs Vital signs: Vital Signs Oxygen Delivery Room Air 11/11/23 11:55 Temperature 36.9 C 11/11/23 13:13 Pulse Rate 65 11/11/23 13:13 Respiratory Rate 17 11/11/23 13:13 Blood Pressure 128/76 11/11/23 13:13 Pulse Oximetry 100 11/11/23 13:13 Oxygen Delivery Room Air 11/11/23 13:13 Procedures Abscess I/D back: Date of Incision: 11/11/23 Time of Incision: 13:29 Side (if applicable): right Sedation/analgesia: none Local Anesthetic: lidocaine 1% Amount of anesthesia used (mL): 5 Irrigation: No Packing used?: iodoform I&D Results: Pus and Blood Complications: bleeding Abcess I&D Additional Comments: CULTURE OBTAINED Critical Care Time Critical Care Time Critical Care Time: No Discharge Plan Discharge Clinical Impression: Abscess Patient Disposition: Home, Self-Care Condition: Improved Instructions: Antibiotic Form Additional Instructions: REMOVE PACKING IN 48 HOURS TYLENOL, IBUPROFEN NEEDED Prescriptions: New clindamycin HCl [Cleocin HCl] 300 mg capsule 300 mg PO Q6H Qty: 40 0RF No Action metoprolol succinate 25 mg tablet extended release 24 hr 25 mg PO DAILY rosuvastatin 40 mg tablet 40 mg PO DAILY aspirin [Adult Aspirin Regimen] 81 mg tablet,delayed release (DR/EC) 81 mg PO DAILY Qty: 30 11RF Follow-up/Referrals: Geno,BRENDAN Bernal [Primary Care Provider] - Stand Alone Forms: Work/School R
[2023-11-11] MEDS: LIDOCAINE HCL 1% LOCAL INJ 10 ML VIAL 5 ML INFILTRATE (12:59)
[2023-11-11 13:13] VITALS: BP 128/76; PULSE 65; RESP 17; TEMP 36.9; O2SAT 100
--- NOTE | 2023-11-13 13:00 | PC.NURSE ---
PRELIMINARY WOUND CULTURE RESULTS: GRAM STAIN: MODERATE WHITE BLOOD CELLS SEEN. MODERATE GRAM POSITIVE COCCI IN CLUSTERS. TO AWAIT C&S PER DR POON
--- NOTE | 2023-11-15 13:31 | PC.NURSE ---
abscess culture noted, MRSA, treatment with clindamycin appropriate. no change needed.
== END 2023-11-11 13:13 | disposition home or self-care (01) ==
PROVIDERS: Emergency Provider Emergency Medicine; PCP Physician Assistant
DX: L02.31 Cutaneous abscess of buttock (principal); I25.10 Atherosclerotic heart disease of native coronary artery without angina pectoris; I25.2 Old myocardial infarction; Z87.891 Personal history of nicotine dependence
CPT/HCPCS: 10061; 87070; 87147; 87181; 87205; 99283